=== PATIENT | female | born 1985 | race African-American/Black ===

== ENCOUNTER 2017-07-10 19:17 | Emergency (ER) | payer MEDICAID ==
[2017-07-10 19:59] LABS: ANION GAP 12 (5-19); BLOOD UREA NITROGEN 10 mg/dL (7-20); CALCIUM 10.1 mg/dL (8.4-10.2); CARBON DIOXIDE 20 mmol/L (22-30); CHLORIDE 107 mmol/L (98-107); CREATININE RESULT 0.65 mg/dL (0.52-1.25); GLUCOSE 107 mg/dL (75-110); POTASSIUM 3.3 mmol/L (3.6-5.0); SODIUM 139.2 mmol/L (137-145)
--- NOTE | 2017-07-10 20:15 | RADIOLOGY REPORT (SQ) ---
EXAM DESCRIPTION: CHEST SINGLE VIEW COMPLETED DATE/TIME: 07/10/2017 8:07 pm REASON FOR STUDY: chest pain COMPARISON: November 2012 EXAM PARAMETERS: NUMBER OF VIEWS: One view. TECHNIQUE: Single frontal radiographic view of the chest acquired. RADIATION DOSE: NA LIMITATIONS: None. FINDINGS: LUNGS AND PLEURA: No opacities, masses or pneumothorax. No pleural effusion. MEDIASTINUM AND HILAR STRUCTURES: No masses. Contour normal. HEART AND VASCULAR STRUCTURES: Heart normal in size. Normal vasculature. BONES: No acute findings. HARDWARE: None in the chest. OTHER: No other significant finding. IMPRESSION: NO ACUTE RADIOGRAPHIC FINDING IN THE CHEST. TECHNICAL DOCUMENTATION: JOB ID: [id number]
[2017-07-10] MEDS ORDERED: DIAZEPAM 5 MG TABLET PO ONE (20:16)
--- NOTE | 2017-07-10 20:22 | ER Document Report ---
ED General - General Chief Complaint: Chest Pain Stated Complaint: CHEST PAIN Time Seen by Provider: 07/10/17 19:23 Notes: Patient is a 31-year-old female with a past medical history of hypertension who presents with 12 hours of bilateral chest pain which is described as a stabbing , shooting pain. Nothing improves or worsens her pain. States she has a history of similar symptoms in the past but they have never lasted this long. She has no history of coronary artery disease, cardiac pathology in the past, history of DVT or pulmonary embolus. She has not seen a primary care doctor regarding today's concerns. She does not use supplemental estrogen of any kind. Denies any pain at time of my assessment. Denies any associated shortness of breath, nausea, vomiting, radiation of the pain. TRAVEL OUTSIDE OF THE [place] IN LAST 30 DAYS: No - Related Data Allergies/Adverse Reactions: No Known Allergies Allergy (Verified 07/10/17 20:15) Past Medical History - General Information source: Patient - Social History Smoking Status: Current Every Day Smoker Frequency of alcohol use: None Drug Abuse: None Lives with: Spouse/Significant other Family History: Reviewed & Not Pertinent - Past Medical History Cardiac Medical History: Reports: Hx Hypertension - on meds Denies: Hx Coronary Artery Disease, Hx Heart Attack Pulmonary Medical History: Denies: Hx Asthma, Hx Bronchitis, Hx COPD, Hx Pneumonia Neurological Medical History: Denies: Hx Cerebrovascular Accident, Hx Seizures Musculoskeltal Medical History: Denies Hx Arthritis Past Surgical History: Reports: Hx Orthopedic Surgery - right knee - Immunizations Hx Diphtheria, Pertussis, Tetanus Vaccination: No Review of Systems - Review of Systems Notes: Constitutional: Negative for fever. HENT: Negative for sore throat. Eyes: Negative for visual changes. Cardiovascular: Positive for chest pain. Respiratory: Negative for shortness of breath. Gastrointestinal: Negative for abdominal pain, vomiting or diarrhea. Genitourinary: Negative for dysuria. Musculoskeletal: Negative for back pain. Skin: Negative for rash. Neurological: Negative for headaches, weakness or numbness. 10 point ROS negative except as marked above and in HPI. Physical Exam - Vital signs Vitals: Pulse Ox 100 07/10/17 19:44 Interpretation: Hypertensive Notes: PHYSICAL EXAMINATION: GENERAL: Well-appearing, well-nourished and in no acute distress. HEAD: Atraumatic, normocephalic. EYES: Pupils equal round and reactive to light, extraocular movements intact, sclera anicteric, conjunctiva are normal. ENT: nares patent, oropharynx clear without exudates. Moist mucous membranes. NECK: Normal range of motion, supple without lymphadenopathy LUNGS: Breath sounds clear to auscultation bilaterally and equal. No wheezes rales or rhonchi. HEART: Regular rate and rhythm without murmurs ABDOMEN: Soft, nontender, normoactive bowel sounds. No guarding, no rebound. No masses appreciated. EXTREMITIES: Normal range of motion, no pitting or edema. No cyanosis. NEUROLOGICAL: No focal neurological deficits. Moves all extremities spontaneously and on command. PSYCH: Normal mood, normal affect. SKIN: Warm, Dry, normal turgor, no rashes or lesions noted. Course - Re-evaluation Re-evalutation: 07/10/17 20:17 Presentation of chest pain in an otherwise well appearing patient. Low clinical suspicion for ACS given clinical history, exam, EKG without ST elevations or depressions, and negative initial troponin. HEART score less than or equal to 3. PE also seems unlikely given clinical history, absence of tachycardia or dyspnea. Patient is PERC criteria negative. CXR without evidence of pneumothorax or pneumonia. No widened mediastinum. Aortic dissection also seems unlikely given history, symmetric pulses, CXR, and vitals. Overall, patient's history is very atypical and her chest pain is been ongoing for greater than 12 hours at time of presentation. Serial enzymes are not indicated given my low clinical suspicion and the duration of her chest pain. Patient admits symptoms feel much like a panic attack and I believe given her clinical history this is likely the case. HEART Score: History:0 EC Age:0 Risk Factors:1 Troponin:0 Total: 1 Overall assessment: Chest pain in a patient without evidence of cardiac or other serious etiology on workup today. I discussed with patient that, based on their age, risk factors and emergency department testing today, the likelihood that their symptoms are related to a heart attack is very low (estimated risk of heart attack or over the next 30 days of less than 2%). The patient demonstrates decision making capacity and has verbalized an understanding of these risks to me. Based on this, the patient has chosen to follow-up as an outpatient. Usual chest pain return precautions reviewed. The patient states understanding and agreement with this plan. - Vital Signs Vital signs: Temp Pulse Resp BP Pulse Ox 64 18 172/99 H 100 07/10/17 19:46 07/10/17 20:42 07/10/17 20:42 07/10/17 20:42 - Laboratory Result Diagrams: 07/10/17 19:34 Laboratory results interpreted by me: 07/10/17 19:34 Potassium 3.3 L Carbon Dioxide 20 L - Diagnostic Test Radiology reviewed: Image reviewed, Reports reviewed Radiology results interpreted by me: 07/10/17 20:18 Chest x-ray: No acute infiltrate - EKG Interpretation by Me Additional EKG results interpreted by me: 07/10/17 20:21 Normal sinus rhythm. C9-8. No ST elevations or depressions. QTC 417. Discharge - Discharge Clinical Impression: Essential hypertension Chest pain Qualifiers: Chest pain type: unspecified Qualified Code(s): R07.9 - Chest pain, unspecified Condition: Good Disposition: HOME, SELF-CARE Additional Instructions: You were seen today for chest pain. The exact cause of your pain is unclear. However, based on your cardiac enzyme testing, chest x-ray, and EKG it does not appear that it is from an immediately life-threatening cause at this time. Although your testing here is normal is critical that you follow-up with your primary care physician for continued evaluation of this chest pain. Please return to emergency department immediately if you have worsening of your chest pain, shortness of breath, vomiting, become unable to exert yourself due to pain or difficulty breathing, you pass out, or have any pain that radiates into your arms, jaw, or back. Please also return if you have any additional symptoms that are concerning to you. Referrals: REX LEDBETTER CNM [Primary Care Provider] - Follow up as needed
[2017-07-10 20:42] VITALS: BP 172/99
--- NOTE | 2017-07-11 08:16 | EKG REPORT ---
SEVERITY:- NORMAL ECG - SINUS RHYTHM : Confirmed by: Aram Badillo MD 11-Jul-2017 08:15:34
== END 2017-07-10 20:42 | disposition home or self-care (01) ==
LOC: ER 19:17
DX: R07.9 Chest pain, unspecified (principal); I10 Essential (primary) hypertension; F17.200 Nicotine dependence, unspecified, uncomplicated
CPT/HCPCS: 36415; 71010; 80048; 84484; 93005; 93010; 99285

== ENCOUNTER 2018-01-04 08:04 | Emergency (ER) | payer OTHER ==
--- NOTE | 2018-01-04 08:44 | ER Document Report ---
ED Medical Screen (RME) - General Chief Complaint: Numbness of Face Stated Complaint: FACIAL NUMBNESS Time Seen by Provider: 01/04/18 08:37 Notes: Patient is a 32-year-old female presents emergency department with a chief complaint of right-sided facial numbness. Patient states that this started 3 days ago with loss of taste on the right side of her tongue. She states that she thought that she ate something spicy. States that every day this progressed. She states that now she cannot rise her right eyebrow she cannot completely close her right eye she admits to numbness on the right side of her face. Otherwise she denies any other symptoms. Denies any weakness in bilateral upper extremities, lower extremities. Able to walk without any difficulty. States she has been able to eat without any difficulty, denies any difficulty swallowing, cough. Past medical history significant for hypertension. Denies any other previous history of intracranial hemorrhage, she is not on blood thinners I have greeted and performed a rapid initial assessment of this patient. A comprehensive ED assessment and evaluation of the patient, analysis of test results and completion of the medical decision making process will be conducted by additional ED providers. TRAVEL OUTSIDE OF THE [place] IN LAST 30 DAYS: No - Related Data Allergies/Adverse Reactions: No Known Allergies Allergy (Verified 01/04/18 08:04) Past Medical History - Past Medical History Cardiac Medical History: Reports: Hx Hypertension - on meds Denies: Hx Coronary Artery Disease, Hx Heart Attack Pulmonary Medical History: Denies: Hx Asthma, Hx Bronchitis, Hx COPD, Hx Pneumonia Neurological Medical History: Denies: Hx Cerebrovascular Accident, Hx Seizures Musculoskeltal Medical History: Denies Hx Arthritis Past Surgical History: Reports: Hx Orthopedic Surgery - right knee - Immunizations Hx Diphtheria, Pertussis, Tetanus Vaccination: No Physical Exam - Vital signs Vitals: Temp Pulse Resp BP Pulse Ox 98.7 F 86 16 147/104 H 99 01/04/18 08:22 01/04/18 08:22 01/04/18 08:22 01/04/18 08:22 01/04/18 08:22 - General General appearance: Appears well, Alert In distress: None - Neurological Neuro grossly intact: Yes Cognition: Normal Orientation: AAOx4 [place] Coma Scale Eye Opening: Spontaneous [place] Coma Scale Verbal: Oriented Va Coma Scale Motor: Obeys Commands [place] Coma Scale Total: 15 Speech: Normal Cranial nerves: Facial palsy. No: Forehead sparing, Gaze palsy, Sensory deficit , Tongue deviation Cerebellar coordination: Normal. No: Gait ataxia, Finger-nose rhombey Motor strength normal: LUE, RUE, LLE, RLE Additional motor exam normals: Equal supervisor inspection. No: Pronator drift Course - Vital Signs Vital signs: Temp Pulse Resp BP Pulse Ox 98.7 F 86 16 147/104 H 99 01/04/18 08:22 01/04/18 08:22 01/04/18 08:22 01/04/18 08:22 01/04/18 08:22
--- NOTE | 2018-01-04 09:18 | RADIOLOGY REPORT (SQ) ---
EXAM DESCRIPTION: CT HEAD WITHOUT COMPLETED DATE/TIME: 01/04/2018 9:08 am REASON FOR STUDY: ride sided facial numbness for three days COMPARISON: None. TECHNIQUE: Axial images acquired through the brain without intravenous contrast. Images reviewed wi th bone, brain and subdural windows. Images stored on PACS. All CT scanners at this facility use dose modulation, iterative reconstruction, and/or weight based d osing when appropriate to reduce radiation dose to as low as reasonably achievable (ALARA). [facility]: Dose Right [facility]: CareDose [facility]: Dose Right [facility]: Teradose 4D [facility]: [place]oyo RADIATION DOSE: CT Rad equipment meets quality standard of care and radiation dose reduction techniq ues were employed. CTDIvol: 64.6 mGy. DLP: 1163 mGy-cm. mGy. LIMITATIONS: None. FINDINGS: VENTRICLES: Normal size and contour. CEREBRUM: No masses. No hemorrhage. No midline shift. No evidence for acute infarction. Normal gra y/white matter differentiation. No areas of low density in the white matter. CEREBELLUM: No masses. No hemorrhage. No alteration of density. No evidence for acute infarction. EXTRAAXIAL SPACES: No fluid collections. No masses. ORBITS AND GLOBE: No intra- or extraconal masses. Normal contour of globe without masses. CALVARIUM: No fracture. PARANASAL SINUSES: No fluid or mucosal thickening. SOFT TISSUES: No mass or hematoma. OTHER: No other significant finding. IMPRESSION: NORMAL BRAIN CT WITHOUT CONTRAST. EVIDENCE OF ACUTE STROKE: NO. COMMENT: Quality ID # [id number]: Final reports with documentation of one or more dose reduction techniques (e.g., Automated exposure control, adjustment of the mA and/or kV according to patient size, use of iterative reconstruction technique) TECHNICAL DOCUMENTATION: JOB ID: [id number] [employer]- All Rights Reserved
--- NOTE | 2018-01-04 10:28 | ER Document Report ---
HPI - HPI Pain Level: 0 Context: Patient is a 32-year-old female presents emergency department with a chief complaint of right-sided facial numbness. Patient states that this started 3 days ago with loss of taste on the right side of her tongue. She states that she thought that she ate something spicy. States that every day this progressed. She states that now she cannot rise her right eyebrow she cannot completely close her right eye she admits to numbness on the right side of her face. Otherwise she denies any other symptoms. Denies any weakness in bilateral upper extremities, lower extremities. Able to walk without any difficulty. States she has been able to eat without any difficulty, denies any difficulty swallowing, cough. Past medical history significant for hypertension. Denies any other previous history of intracranial hemorrhage, she is not on blood thinners - REPRODUCTIVE Reproductive: REPORTS: : - DERM Skin Color: Normal Past Medical History - Social History Smoking Status: Current Every Day Smoker Chew tobacco use (# tins/day): No Frequency of alcohol use: None Drug Abuse: None Family History: Reviewed & Not Pertinent Patient has suicidal ideation: No Patient has homicidal ideation: No - Past Medical History Cardiac Medical History: Reports: Hx Hypertension - on meds Denies: Hx Coronary Artery Disease, Hx Heart Attack Pulmonary Medical History: Denies: Hx Asthma, Hx Bronchitis, Hx COPD, Hx Pneumonia Neurological Medical History: Denies: Hx Cerebrovascular Accident, Hx Seizures Renal/ Medical History: Denies: Hx Peritoneal Dialysis Musculoskeltal Medical History: Denies Hx Arthritis Past Surgical History: Reports: Hx Orthopedic Surgery - right knee - Immunizations Hx Diphtheria, Pertussis, Tetanus Vaccination: No Vertical Provider Document - CONSTITUTIONAL Agree With Documented VS: Yes Notes: PHYSICAL EXAM GENERAL: Alert, interacts well. HEAD: Normocephalic, atraumatic. EYES: Pupils equal, round, and reactive to light. Extraocular movements intact. LUNGS: Clear to auscultation bilaterally, no wheezes, rales, or rhonchi. No respiratory distress. HEART: Regular rate and rhythm. No murmurs, gallops, or rubs. EXTREMITIES: Moves all 4 extremities spontaneously. No edema, radial and dorsalis pedis pulses 2/4 bilaterally. No cyanosis. NEUROLOGICAL: Alert and oriented x4. Face asymmetric including forehead with facial palsy of the right side. Tongue protrudes midline. Extraocular motions intact. Pupils are 2 mm and equally reactive. Normal speech, normal gait. 5 out of 5 strength in both the distal and proximal upper and lower extremities bilaterally. Sensation is grossly intact throughout. Finger to nose testing normal. Pronator drift normal. PSYCH: Normal affect, normal mood. SKIN: Warm, dry, normal turgor. No rashes or lesions noted. - INFECTION CONTROL TRAVEL OUTSIDE OF THE [place] 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 Patient has complete involvement including of the forehead. No additional focal neurologic deficits. Presentation and exam are not consistent with an acute stroke. Patient has been started on prednisone and valacyclovir. Eye drops have been provided. The patient has been encouraged to follow closely with his primary care physician and return for any new or worsening symptoms. They verbalized understanding and will be discharged at this time. - Vital Signs Vital signs: Temp Pulse Resp BP Pulse Ox 98.7 F 86 16 147/104 H 99 01/04/18 08:22 01/04/18 08:22 01/04/18 08:22 01/04/18 08:22 01/04/18 08:22 Discharge - Discharge Clinical Impression: Allan's palsy Condition: Good Disposition: HOME, SELF-CARE Instructions: Allan's Palsy ([facility]), Steroid Medication Additional Instructions: [facility]: [address] [place] [address] p: [phone] Prescriptions: Polyvinyl Alcohol [Artificial Tears] 15 ml OP ASDIR PRN 7 Days drops PRN Reason: Prednisone 60 mg PO ASDIR PRN 10 Days tablet PRN Reason: Valacyclovir HCl [Valacyclovir] 1,000 mg PO TID 7 Days tablet Forms: Return to Work Referrals: SHAN COLBY MD [ACTIVE STAFF] - Follow up in 3-5 days
[2018-01-04] MEDS ORDERED: VALACYCLOVIR HCL 500 MG TABLET PO ONE (10:41)
[2018-01-04] MEDS ORDERED: PREDNISONE 20 MG TABLET PO ONE (10:41)
[2018-01-04 11:13] VITALS: BP 148/104
== END 2018-01-04 11:11 | disposition home or self-care (01) ==
LOC: ER 08:04
DX: G51.0 Bell's palsy (principal); I10 Essential (primary) hypertension; F17.200 Nicotine dependence, unspecified, uncomplicated
CPT/HCPCS: 99284; 70450; J7512

== ENCOUNTER 2020-05-12 19:36 | Emergency (ER) | payer MEDICAID, OTHER ==
[2020-05-12] MEDS ORDERED: ACETAMINOPHEN 325 MG TABLET PO ONE (20:20)
--- NOTE | 2020-05-12 20:21 | ER Document Report ---
ED Medical Screen (RME) - General Chief Complaint: Abdominal Pain Stated Complaint: EPIGASTRIC PAIN Time Seen by Provider: 05/12/20 20:13 Mode of Arrival: Ambulatory Information source: Patient Notes: HPI; 34-year-old female who states she is approximately 10 weeks positive test 2 days ago. Resents emergency room complaining of nausea, vomiting, abdominal pain that started earlier today. She describes it as cramping and sharp in her lower abdomen. Denies any bleeding. Is compliant discharge. No OB care as of yet. No meds for symptoms. She is a 4 para 3 PE: Alert and oriented x3. Mild distress noted. Lungs are clear to auscultation with rales rhonchi wheezes. Heart regular rate rhythm without murmurs rubs or gallops. Unable to do a full abdominal exam in triage. I have greeted and performed a rapid initial assessment of this patient. A comprehensive ED assessment and evaluation of the patient, analysis of test results and completion of the medical decision making process will be conducted by additional ED providers. I have specifically instructed the patient or family members with the patient to immediately return to any nursing staff should anything change in the patient's condition or with their chief complaint. TRAVEL OUTSIDE OF THE [place] IN LAST 30 DAYS: No - Related Data Allergies/Adverse Reactions: No Known Allergies Allergy (Verified 05/12/20 20:13) Home Medications: HTN MEDS Past Medical History - Social History Frequency of alcohol use: None Drug Abuse: None - Past Medical History Cardiac Medical History: Reports: Hx Hypertension - on meds Denies: Hx Coronary Artery Disease, Hx Heart Attack Pulmonary Medical History: Denies: Hx Asthma, Hx Bronchitis, Hx COPD, Hx Pneumonia Neurological Medical History: Denies: Hx Cerebrovascular Accident, Hx Seizures Renal/ Medical History: Denies: Hx Peritoneal Dialysis Musculoskeltal Medical History: Denies Hx Arthritis Past Surgical History: Reports: Hx Orthopedic Surgery - right knee - Immunizations Hx Diphtheria, Pertussis, Tetanus Vaccination: No Physical Exam - Vital signs Vitals: Temp Pulse Resp BP Pulse Ox 98.9 F 72 20 164/110 H 98 05/12/20 20:06 05/12/20 20:06 05/12/20 20:06 05/12/20 20:06 05/12/20 20:06 Course - Vital Signs Vital signs: Temp Pulse Resp BP Pulse Ox 98.9 F 72 20 164/110 H 98 05/12/20 20:13 05/12/20 20:06 05/12/20 20:06 05/12/20 20:06 05/12/20 20:06
--- NOTE | 2020-05-12 21:09 | RADIOLOGY REPORT (SQ) ---
EXAM DESCRIPTION: US LESS THAN 14 WEEKS COMPLETED DATE/TME: 05/12/2020 20:19 CLINICAL HISTORY: 34 years, Female, abdominal pain COMPARISON: None. TECHNIQUE: Axial 2-D grayscale images of the pelvis were acquired. Doppler was utilized. LIMITATIONS: None. FINDINGS: Uterus measures 9.1 x 5.6 x 4.2 cm in size. Cervix is closed, measuring 2.7 cm in length. No intrauterine is identified. Endometrial stripe thickness measures 1 cm. Right ovary measures 3.2 x 2.1 x 3.1 cm in size. It demonstrates normal echogenicity and Doppler flow. Left ovary measures 3.0 x 1.8 x 2.7 cm in size. It also demonstrates normal echogenicity and Doppler flow. No significant free fluid is identified within the imaged pelvis. IMPRESSION: No intrauterine identified. Correlate with beta hCG levels. If beta hCG is positive, the differential considerations include an early , missed miscarriage, or potentially an ectopic . Ultimately, correlation with serial beta hCG levels is recommended as well as short interval follow-up pelvic ultrasound to assess for developing IUP. copyright 2010 [employer]- All Rights Reserved
[2020-05-12 21:36] LABS: ABSOLUTE BASOPHILS # (AUTO) 0.1 10^3/uL (0.0-0.2); ABSOLUTE EOSINOPHILS # (AUTO) 0.2 10^3/uL (0.0-0.6); ABSOLUTE LYMPHOCYTES (AUTO) 2.2 10^3/uL (0.5-4.7); ABSOLUTE MONOCYTES (AUTO) 0.6 10^3/uL (0.1-1.4); ABSOLUTE NEUT (AUTO) 7.1 10^3/uL (1.7-8.2); BASOPHILS % (AUTO) 1.3 % (0-2); EOSINOPHILS % (AUTO) 1.9 % (0-6); HEMATOCRIT 42.5 % (36.0-47.0); HEMOGLOBIN 14.3 g/dL (12.0-15.5); LYMPHOCYTES % (AUTO) 21.5 % (13-45); MEAN CORPUSCULAR HGB CONC 33.6 g/dL (32.0-36.0); MEAN CORPUSCULAR VOLUME 89 fl (80-97); MONOCYTES % (AUTO) 5.9 % (3-13); PLATELET COUNT 395 10^3/uL (150-450); RED BLOOD COUNT 4.77 10^6/uL (3.72-5.28); RED CELL DISTRIBUTION WIDTH 14.7 % (11.5-14.0); SEGMENTED NEUTROPHILS % (AUTO) 69.4 % (42-78); TOTAL CELLS COUNTED % (AUTO) 100 %; WHITE BLOOD COUNT 10.2 10^3/uL (4.0-10.5)
[2020-05-12 21:39] LABS: APPEARANCE,URINE SLIGHTLY-CLOUDY; BILIRUBIN,URINE SMALL (NEGATIVE); COLOR,URINE AMBER; GLUCOSE, URINE NEGATIVE (NEGATIVE); KETONES,URINE NEGATIVE (NEGATIVE); LEUKOCYTE ESTERASE,URINE NEGATIVE (NEGATIVE); NITRITE,URINE NEGATIVE (NEGATIVE); PROTEIN,URINE NEGATIVE (NEGATIVE); URINE SPECIFIC GRAVITY 1.028
[2020-05-12 21:54] LABS: ALBUMIN 4.5 g/dL (3.5-5.0); ALKALINE PHOSPHATASE 773 U/L (38-126); ANION GAP 6 (5-19); ASPARTATE AMINO TRANSFERASE 527 U/L (14-36); BLOOD UREA NITROGEN 10 mg/dL (7-20); CALCIUM 9.9 mg/dL (8.4-10.2); CARBON DIOXIDE 25 mmol/L (22-30); CHLORIDE 104 mmol/L (98-107); GLUCOSE 113 mg/dL (75-110); POTASSIUM 3.9 mmol/L (3.6-5.0)
[2020-05-12 21:55] LABS: BILIRUBIN,DIRECT 1.4 mg/dL (0.0-0.4); BILIRUBIN,TOTAL 2.1 mg/dL (0.2-1.3); TOTAL PROTEIN 7.9 g/dL (6.3-8.2)
--- NOTE | 2020-05-12 23:46 | ER Document Report ---
ED General - General Chief Complaint: Abdominal Pain Stated Complaint: EPIGASTRIC PAIN Time Seen by Provider: 05/12/20 20:13 Primary Care Provider: NATANAEL CHAVEZ PA-C [Primary Care Provider] - Follow up as needed Mode of Arrival: Ambulatory Notes: 34-year-old female presents emergency department complaining of midline abdominal pain that radiates from the epigastric region down to her suprapubic region but she says it is worse around the umbilicus. Patient states it worsened again today however the first episode started approximately 1 months ago. Patient states that at that time she decreased her greasy foods, started a bland diet and the pain has generally decreased but it has now worsened again. States she was seen [address] [facility], started on 2 different med ications for possible gastritis and possible H. pylori infection however she then received a phone call that told her that she was and was told to stop taking all of those medications. Patient's last menstrual period was 04/12/2020. Denies any vaginal bleeding. Denies taking any acetaminophen beyond being given 2 tablets here today. TRAVEL OUTSIDE OF THE [place] IN LAST 30 DAYS: No - Related Data Allergies/Adverse Reactions: No Known Allergies Allergy (Verified 05/12/20 20:13) Home Medications: HTN MEDS Past Medical History - General Information source: Patient - Social History Smoking Status: Former Smoker Frequency of alcohol use: None Drug Abuse: None Family History: Reviewed & Not Pertinent Patient has homicidal ideation: No - Past Medical History Cardiac Medical History: Reports: Hx Hypertension - on meds Denies: Hx Coronary Artery Disease, Hx Heart Attack Pulmonary Medical History: Denies: Hx Asthma, Hx Bronchitis, Hx COPD, Hx Pneumonia Neurological Medical History: Denies: Hx Cerebrovascular Accident, Hx Seizures Renal/ Medical History: Denies: Hx Peritoneal Dialysis Musculoskeletal Medical History: Denies Hx Arthritis Past Surgical History: Reports: Hx Orthopedic Surgery - right knee - Immunizations Hx Diphtheria, Pertussis, Tetanus Vaccination: No Review of Systems - Review of Systems Constitutional: No symptoms reported Gastrointestinal: See HPI, Abdominal pain, Nausea. denies: Diarrhea, Vomiting Genitourinary: No symptoms reported Female Genitourinary: See HPI, . denies: Irregular period, Vaginal discharge -: Yes All other systems reviewed and negative Physical Exam - Vital signs Vitals: Temp Pulse Resp BP Pulse Ox 98.9 F 72 20 164/110 H 98 05/12/20 20:06 05/12/20 20:06 05/12/20 20:06 05/12/20 20:06 05/12/20 20:06 Interpretation: Hypertensive - Notes Notes: GENERAL: Alert, interacts well. No acute distress. HEAD: Normocephalic, atraumatic EYES: Pupils equal, round and reactive to light, extraocular movements intact. Slight jaundice to the conjunctiva. ENT: Oral mucosa moist, tongue midline. NECK: Full range of motion, supple, trachea midline. LUNGS: Clear to auscultation bilaterally, no wheezes, rales or rhonchi, no respiratory distress. HEART: Regular rate and rhythm, no murmurs, gallops, rubs. ABDOMEN: Soft, tender to palpation epigastrically, right upper quadrant, periumbilically, minimal to no tenderness to palpation suprapubically, no right or left lower quadrant tenderness to palpation, nondistended, bowel sounds present in all 4 quadrants. EXTREMITIES: Moves all 4 extremities spontaneously, no edema, radial and dorsalis pedis pulses 2/4 bilaterally. No cyanosis. NEUROLOGICAL: Alert and oriented x3, normal speech. PSYCH: Normal mood, normal affect. SKIN: Warm, Dry, normal turgor, no rashes or lesions noted. Course - Re-evaluation Re-evalutation: 05/12/20 23:45 CBC unremarkable, CMP shows slight low sodium, there is an elevated total bilirubin at 2.1, direct bilirubin elevated at 1.4, AST elevated at 527, ALT elevated at 727, alkaline phosphatase elevated at 773. Quant and serum hCG are negative. Urinalysis shows small bilirubin, no signs of infection. 05/12/20 23:45 Obstetrics Ultrasound 05/12/20 20:19 IMPRESSION: No intrauterine identified. Correlate with beta hCG levels. If beta hCG is positive, the differential considerations include an early , missed miscarriage, or potentially an ectopic . Ultimately, correlation with serial beta hCG levels is recommended as well as short interval follow-up pelvic ultrasound to assess for developing IUP. copyright 2010 [employer]- All Rights Reserved Patient is not . Suspect chemical that down trended very quickly. I am concerned by the elevated LFTs and the elevated total and direct bilirubin, ultrasound of the right upper quadrant will be performed. 05/13/20 01:06 Ultrasound of the right upper quadrant shows cholelithiasis with thickened gallbladder wall, no surrounding fluid, dilated common bile duct. Discussed case with Dr. Burciaga the surgeon operations planner, states the patient needs an ERCP. Discussed with patient, requests transfer to [facility] if possible. [facility] is on diversion, patient then prefers transfer to [facility], I am awaiting a phone call back. Patient has had Zosyn ordered. 05/13/20 01:[address] Shin the hospitalist at [facility], accepts the patient to his service on a general medical bed. - Vital Signs Vital signs: Temp Pulse Resp BP Pulse Ox 98.7 F 68 14 147/95 H 97 05/13/20 01:44 05/13/20 01:44 05/13/20 01:44 05/13/20 01:44 05/13/20 01:44 - Laboratory Result Diagrams: 05/12/20 21:20 05/12/20 21:20 Laboratory results interpreted by me: 05/12/20 05/12/20 05/12/20 21:20 21:20 21:20 RDW 14.7 H Sodium 135.3 L Glucose 113 H Total Bilirubin 2.1 H Direct Bilirubin 1.4 H AST 527 H ALT 727 H Alkaline Phosphatase 773 H Urine Bilirubin SMALL H Urine Urobilinogen 4.0 H Urine Ascorbic Acid 40 H Discharge - Discharge Clinical Impression: suspect choledocolithiasis Cholelithiasis Qualifiers: Cholelithiasis location: gallbladder Cholecystitis presence: without cholecystitis Biliary obstruction: with biliary obstruction Qualified Code(s): K80.21 - Calculus of gallbladder without cholecystitis with obstruction Condition: Stable Disposition: [facility] Referrals: NATANAEL CHAVEZ PA-C [Primary Care Provider] - Follow up as needed
--- NOTE | 2020-05-13 00:16 | RADIOLOGY REPORT (SQ) ---
EXAM DESCRIPTION: Right upper quadrant abdominal ultrasound CLINICAL HISTORY: 34 years Female; elevated LFTs, elevated bili TECHNIQUE: Abdominal ultrasound was performed. COMPARISON: None. FINDINGS: Pancreas: The head and body the pancreas are unremarkable. The tail was not well seen. Liver: Liver measures 19 cm in length. Echotexture is mildly increased suggesting fatty infiltration. Portal vein is patent with hepatopedal flow.. Gallbladder: The gallbladder bladder is contracted. The wall is thickened measuring 5.4 mm. Hyperechoic shadowing stones are seen in the gallbladder. No sonographic Lane's. Common bile duct: 12.7 mm. Right kidney: The right kidney measures 11.2 cm in length and has normal echogenicity.. No hydronephrosis. Aorta:Visualized portions are within normal limits. IVC: Visualized portions are within normal limits. Ascites: No free fluid. IMPRESSION: 1. Cholelithiasis with thickened gallbladder wall. 2. Dilatation the common bile duct which measures 12.7 mm in diameter
[2020-05-13] MEDS ORDERED: PIPERACILLIN/TAZOBACTAM 3.375 GM VIAL IV ONE (01:00)
[2020-05-13] MEDS ORDERED: RINGERS SOLUTION,LACTATED 1,000 ML IV ONE (02:20)
[2020-05-13] MEDS: PIPERACILLIN/TAZOBACTAM 3.375 GM VIAL IV SCH ×3 (08:06→21:54)
[2020-05-13] MEDS: RINGERS SOLUTION,LACTATED 1,000 ML IV PRN (18:59)
[2020-05-13 19:25] LABS: ALBUMIN 4.1 g/dL (3.5-5.0); ALKALINE PHOSPHATASE 677 U/L (38-126); ANION GAP 5 (5-19); ASPARTATE AMINO TRANSFERASE 647 U/L (14-36); BILIRUBIN,DIRECT 0.5 mg/dL (0.0-0.4); BILIRUBIN,TOTAL 1.4 mg/dL (0.2-1.3); BLOOD UREA NITROGEN 7 mg/dL (7-20); CALCIUM 9.6 mg/dL (8.4-10.2); CARBON DIOXIDE 26 mmol/L (22-30); CHLORIDE 105 mmol/L (98-107); GLUCOSE 123 mg/dL (75-110); POTASSIUM 3.6 mmol/L (3.6-5.0); TOTAL PROTEIN 7.3 g/dL (6.3-8.2)
[2020-05-13 20:14] LABS: ABSOLUTE BASOPHILS # (AUTO) 0.2 10^3/uL (0.0-0.2); ABSOLUTE EOSINOPHILS # (AUTO) 0.3 10^3/uL (0.0-0.6); ABSOLUTE LYMPHOCYTES (AUTO) 3.3 10^3/uL (0.5-4.7); ABSOLUTE MONOCYTES (AUTO) 0.5 10^3/uL (0.1-1.4); ABSOLUTE NEUT (AUTO) 4.3 10^3/uL (1.7-8.2); BASOPHILS % (AUTO) 2.1 % (0-2); EOSINOPHILS % (AUTO) 3.7 % (0-6); HEMATOCRIT 40.4 % (36.0-47.0); HEMOGLOBIN 13.7 g/dL (12.0-15.5); LYMPHOCYTES % (AUTO) 38.1 % (13-45); MEAN CORPUSCULAR HEMOGLOBIN 30.1 pg (27.0-33.4); MEAN CORPUSCULAR HGB CONC 33.9 g/dL (32.0-36.0); MEAN CORPUSCULAR VOLUME 89 fl (80-97); MONOCYTES % (AUTO) 6.2 % (3-13); PLATELET COUNT 351 10^3/uL (150-450); RED BLOOD COUNT 4.55 10^6/uL (3.72-5.28); RED CELL DISTRIBUTION WIDTH 14.7 % (11.5-14.0); SEGMENTED NEUTROPHILS % (AUTO) 49.9 % (42-78); TOTAL CELLS COUNTED % (AUTO) 100 %; WHITE BLOOD COUNT 8.6 10^3/uL (4.0-10.5)
--- NOTE | 2020-05-13 22:12 | ER Document Report ---
Doctor's Note Notes: 05/13/20 22:11 Patient remains in the emergency department, there are no beds at [facility], they still have her on the waiting list, I discussed the case and repeat labs with Dr. SONG the hospitalist, agrees that the patient being can be given clear liquids at this time as she does not have a projected time for surgery within the next 4 to 6 hours. CBC still shows no leukocytosis, CMP shows slight decrease in the total and direct bilirubin which is good but also slight increase in the AST, ALT. Patient has been tried on clear liquids, tolerating them well. Zosyn will remain scheduled. Not requiring any IV pain medication at this time. She is afebrile. Home blood pressure medications will be ordered. GENERAL: Alert, interacts well. No acute distress. HEAD: Normocephalic, atraumatic EYES: Pupils equal, round and reactive to light, extraocular movements intact. ENT: Oral mucosa moist, tongue midline. NECK: Full range of motion, supple, trachea midline. LUNGS: no respiratory distress. ABD: Soft, nontender, nondistended. EXTREMITIES: Moves all 4 extremities spontaneously, no edema. No cyanosis. NEUROLOGICAL: Alert and oriented x3, normal speech. PSYCH: Normal mood, normal affect. SKIN: Warm, Dry, normal turgor, no rashes or lesions noted. 05/13/20 22:20 [facility] continues to be on diversion. [facility] states that they only have one doc that does ERCPs and he is not on today. They will call and see if he might be on tomorrow. 05/13/20 22:24 Shown from the transfer line at [facility] and they do not have GI coverage tomorrow either that can do an ERCP. 05/14/20 02:40 Home blood pressure medications have been ordered.
[2020-05-14] MEDS: PIPERACILLIN/TAZOBACTAM 3.375 GM VIAL IV SCH ×4 (02:57→23:55)
[2020-05-14] MEDS: RINGERS SOLUTION,LACTATED 1,000 ML IV PRN (03:40)
--- NOTE | 2020-05-14 08:23 | ER Document Report ---
Doctor's Note Notes: 05/14/20 08:19 Patient resting comfortably in the exam room sitting in chair. Patient somewhat labile affect and tearful over the fact she still waiting and pending transfer to another facility to receive the care she needs` based on reviewing the chart patient is waiting on on the waiting list provided hospital to accept her. She is requiring an ERCP due to choledocholithiasis. Patient denies any pain nausea vomiting or fever at this time. Patient also states that she has been high blood pressure and thus far has not received any of her blood pressure medicines on review of orders patient is scheduled to receive her blood pressure medicines today. Patient has orders pending for a complete blood count CMP and a lipase level. Once labs have resulted and patient has received a blood pressure medicines will do a reassessment and give [facility] call to find out where patient is on the list for transfer.
[2020-05-14] MEDS ORDERED: HYDROXYZINE PAMOATE 50 MG CAPSULE PO ONE (08:51)
[2020-05-14] MEDS ORDERED: ATENOLOL 50 MG TABLET PO SCH (10:00)
[2020-05-14] MEDS ORDERED: AMLODIPINE BESYLATE 10 MG TABLET PO SCH (10:00)
[2020-05-14 10:16] LABS: ABSOLUTE EOSINOPHILS # (AUTO) 0.3 10^3/uL (0.0-0.6); ABSOLUTE LYMPHOCYTES (AUTO) 2.9 10^3/uL (0.5-4.7); ABSOLUTE MONOCYTES (AUTO) 0.4 10^3/uL (0.1-1.4); ABSOLUTE NEUT (AUTO) 5.1 10^3/uL (1.7-8.2); BASOPHILS % (AUTO) 0.3 % (0-2); HEMATOCRIT 40.3 % (36.0-47.0); HEMOGLOBIN 13.5 g/dL (12.0-15.5); LYMPHOCYTES % (AUTO) 33.3 % (13-45); MEAN CORPUSCULAR HEMOGLOBIN 30.1 pg (27.0-33.4); MEAN CORPUSCULAR HGB CONC 33.5 g/dL (32.0-36.0); MEAN CORPUSCULAR VOLUME 90 fl (80-97); MONOCYTES % (AUTO) 5.1 % (3-13); PLATELET COUNT 368 10^3/uL (150-450); RED BLOOD COUNT 4.48 10^6/uL (3.72-5.28); RED CELL DISTRIBUTION WIDTH 14.7 % (11.5-14.0); SEGMENTED NEUTROPHILS % (AUTO) 58.3 % (42-78); TOTAL CELLS COUNTED % (AUTO) 100 %; WHITE BLOOD COUNT 8.7 10^3/uL (4.0-10.5)
[2020-05-14 10:47] LABS: ALBUMIN 4.1 g/dL (3.5-5.0); ALKALINE PHOSPHATASE 644 U/L (38-126); ANION GAP 7 (5-19); ASPARTATE AMINO TRANSFERASE 337 U/L (14-36); BILIRUBIN,DIRECT 0.3 mg/dL (0.0-0.4); BILIRUBIN,TOTAL 1.3 mg/dL (0.2-1.3); BLOOD UREA NITROGEN 6 mg/dL (7-20); CALCIUM 9.7 mg/dL (8.4-10.2); CARBON DIOXIDE 26 mmol/L (22-30); CHLORIDE 105 mmol/L (98-107); GLUCOSE 105 mg/dL (75-110); POTASSIUM 3.9 mmol/L (3.6-5.0); TOTAL PROTEIN 7.1 g/dL (6.3-8.2)
--- NOTE | 2020-05-14 13:28 | ER Document Report ---
Doctor's Note Notes: 05/14/20 13:23 Update on patient status clinically patient is not having any fever chills nausea vomiting or abdominal pain at this time patient has been n.p.o. except for p.o. fluids. Patient's laboratories have been reported showing an improvement in elevated LFTs with a normal bilirubin at this time and a decline in ALT AST and alkaline phosphatase. Those levels except for the bilirubin which is back to normal the other LFTs are still abnormal but on a decline. Today at 5PM there is an expected call from the [facility] transfer center to notify us whether or not patient is going to get a bed assignment today or to remain on the waiting list at this time.
--- NOTE | 2020-05-14 18:35 | RADIOLOGY REPORT (SQ) ---
EXAM DESCRIPTION: MRI ABDOMEN WITHOUT IMAGES COMPLETED DATE/TIME: 05/14/2020 6:00 pm REASON FOR STUDY: ERCP/ elevated LFTs/dilated CBD on US R10.13 EPIGASTRIC PAIN K80.21 CALCULUS OF GALLBLADDER W/O CHOLECYSTITIS WITH OBSTRU R10.13 EPIGASTRIC PAIN COMPARISON: 05/12/2020 TECHNIQUE: Noncontrast MRCP. Source and MIP images reviewed. LIMITATIONS: None. FINDINGS: GALLBLADDER: Re- demonstration of cholelithiasis. INTRAHEPATIC DUCTS: Nondilated. EXTRAHEPATIC DUCTS: The common bile duct is dilated up to 13 mm, and demonstrating 10 x 5 x 4 mm and 6 x 6 x 4 mm choledocholiths. PANCREAS: Generally homogeneous, no gross mass or significant signal alteration. No surrounding infl ammatory changes or fluid. Pancreatic duct is normal. LIVER, SPLEEN, KIDNEYS, ADRENALS: No significant abnormality. VESSELS: No evidence of aneurysm. Grossly appropriate flow voids in the major vascular structures. LUNG BASES: Grossly clear. OTHER: No other significant finding. IMPRESSION: Confirmation of choledocholithiasis with the common bile duct measuring up to 13 mm and 2 demonstrated distal choledocholiths. Background of cholelithiasis without discrete findings of cho lecystitis on today's examination. TECHNICAL DOCUMENTATION: JOB ID: [id number] 2010 [employer]- All Rights Reserved Reading location - IP/workstation name: [email or web address]
[2020-05-15 02:06] VITALS: BP 132/80
== END 2020-05-15 02:16 | disposition short-term general hospital (02) ==
LOC: ER 19:36
DX: K80.21 Calculus of gallbladder without cholecystitis with obstruction (principal); R10.13 Epigastric pain; R10.30 Lower abdominal pain, unspecified; R10.33 Periumbilical pain; Z79.899 Other long term (current) drug therapy; Z87.891 Personal history of nicotine dependence; I10 Essential (primary) hypertension
CPT/HCPCS: 99285; 96361; 96365; 96366; 36415; 84702; 83690; 85025; 80053; 81001; 76801; 76705; J7120 ×2; J2543 ×2